=== PATIENT | male | born 1995 | race African-American/Black ===

== ENCOUNTER 2016-08-21 08:29 | Emergency (ER) | payer SELFPAY ==
[2016-08-21 08:41] VITALS: BP 146/78
--- NOTE | 2016-08-21 08:50 | PHYS DOC ---
Past Medical History Additional Information: Nonsmoker Alcohol Use: None Drug Use: None Adult General Chief Complaint Chief Complaint: SORE THROAT [facility] HPI Patient is a 21 year old male who presents with sore throat for 4 days. He's had a subjective fever at home. He denies nasal congestion, cough, ear pain, vomiting, or diarrhea. He took one tablet of Keflex given to him from someone else. He denies any known sick contacts. He does not have a PCP. Review of Systems Review of Systems Constitutional: Reports subjective fever. Eyes: Denies change in visual acuity, redness, or eye pain. [] HENT: Denies ear pain, nasal congestion. Reports sore throat. Respiratory: Denies cough or shortness of breath. [] Cardiovascular: Denies chest pain, palpitations or edema. [] GI: Denies abdominal pain, nausea, vomiting, bloody stools or diarrhea. [] Musculoskeletal: Denies back pain or joint pain. [] Integument: Denies rash or skin lesions. [] Neurologic: Denies headache, focal weakness or sensory changes. [] All systems reviewed and negative unless otherwise stated in the HPI. Physical Exam Physical Exam Constitutional: Well developed, well nourished, no acute distress, non-toxic appearance. [] HENT: Normocephalic, atraumatic, bilateral external ears normal, oropharynx moist, no oral exudates, nose normal. Bilateral TMs without erythema or bulging. There is posterior pharyngeal erythema with bilateral tonsillar edema and exudates. There is no peritonsillar abscess or uvular deviation. Eyes: PERRLA, EOMI, conjunctiva normal, no discharge. [] Neck: Normal range of motion, no tenderness, supple, no stridor. [] Cardiovascular: Heart rate regular rhythm, no murmur [] Lungs & Thorax: Bilateral breath sounds clear to auscultation without wheezes, rales, or rhonchi. Skin: Warm, dry, no erythema, no rash. [] Neurologic: Alert and oriented X 3, normal motor function, normal sensory function, no focal deficits noted. [] Psychologic: Affect normal, judgement normal, mood normal. [] Current Patient Data Vital Signs Vital Signs Date Time Temp Pulse Resp B/P Pulse Ox O2 Delivery O2 Flow Rate FiO2 08/21/16 08:41 99.5 85 16 99 Room Air 99.5 Lab Values Rapid strep positive EKG EKG [] Radiology/Procedures Radiology/Procedures [] Course & Med Decision Making Course & Med Decision Making Pertinent Labs and Imaging studies reviewed. (See chart for details) Patient presents with sore throat for 4 days with subjective fever. On exam he has posterior pharyngeal erythema with bilateral tonsillar edema and exudates. Rapid strep is positive. Patient was given IM Bicillin L-A in the emergency department. Return precautions were discussed. He verbalizes understanding and agrees with plan. Dragon Disclaimer Dragon Disclaimer This electronic medical record was generated, in whole or in part, using a voice recognition dictation system. Departure Departure Impression: Primary Impression: Strep throat Disposition: 01 HOME, SELF-CARE Condition: STABLE Referrals: NON,STAFF (PCP) Patient Instructions: Strep Throat, [id number] Additional Instructions: Your strep test was positive. You were given a shot of antibiotics in the emergency department. You should not require any additional treatment. Please take Tylenol or Motrin for fever and pain control. Use according to package instructions. Please drink lots of water to stay hydrated and get plenty of rest. Return to the emergency department if you have any new or concerning symptoms. ESTEE HARRIS Aug 21, 2016 08:50
[2016-08-21] MEDS ORDERED: PENICILLIN G BENZATHINE LA 1,200,000 UNIT/2 ML DISP.SYRIN. IM ONE (09:15)
[2016-08-21 11:02] LABS: NEGATIVE OBC STREP NEG; POSITIVE OBC STREP POS
== END 2016-08-21 09:29 | disposition home or self-care (01) ==
LOC: ER 08:29
DX: J02.0 Streptococcal pharyngitis (principal)
CPT/HCPCS: 87880; 96372; 99283; J0561

== ENCOUNTER 2017-05-24 15:00 | Emergency (ER) | payer SELFPAY ==
[2017-05-25 11:29] LABS: NEGATIVE OBC STREP NEG; POSITIVE OBC STREP POS
== END 2017-05-24 15:40 | disposition home or self-care (01) ==
LOC: ER 15:40
DX: J02.9 Acute pharyngitis, unspecified (principal)
CPT/HCPCS: 87880; 99283